=== PATIENT | female | born 1985 | race Caucasian/White ===

== ENCOUNTER 2018-04-08 18:56 | Inpatient (IN) | payer BC ==
[~2018-04-08] VITALS: Ht 162.6 cm; Wt 58.1 kg
[2018-04-08 18:56] VITALS: BP 141/79
[2018-04-08 19:29] LABS: BE -3.2 mmol/L (-2 to +3); HCO3 21.8 mmol/L (22.0-26.0); PCO2 39.2 mmHg (35.0-45.0); PO2 84.9 mmHg (75.0-100.0); pH 7.363 (7.340-7.450)
[2018-04-08 19:32] LABS: HEMOGLOBIN 13.7 gm/dL (12.0-15.0); MCH 30.4 pg (26.0-34.0); MCHC 32.7 g/dL (28.0-37.0); MCV 92.9 fL (80.0-100.0); MPV 7.6 fl. (7.2-11.1); NUCLEATED RBCS 0 /100WBC; PLATELET COUNT* 323 thou/uL (150-400); RBC 4.52 mil/uL (4.20-5.00); RDW-CV 13.2 % (10.5-14.5); WBC 18.4 thou/uL (4.0-11.0)
[2018-04-08 19:39] LABS: ANION GAP 9 mmol/L (7-16); BUN 6 mg/dL (7-18); CALCIUM 9.1 mg/dL (8.5-10.1); CHLORIDE 103 mmol/L (98-107); CO2 25 mmol/L (21-32); CREATININE 1.2 mg/dL (0.6-1.3); GLUCOSE 236 mg/dL (70-99); POTASSIUM 4.8 mmol/L (3.5-5.1); SODIUM 137 mmol/L (136-145)
[2018-04-08 19:42] LABS: PROTIME 10.6 Seconds (9.20-11.50)
[2018-04-08 19:49] LABS: ALBUMIN 4.1 g/dL (3.4-5.0); ALKALINE PHOSPHATASE 85 U/L (46-116); MAGNESIUM 1.8 mg/dL (1.8-2.4); NT-PRO BRAIN NAT PEPTIDE 108 pg/mL (<300); SGOT 15 U/L (15-37); SGPT 17 U/L (30-65); TOTAL BILIRUBIN 0.3 mg/dL (<0.1-1.0); TOTAL PROTEIN 7.8 g/dL (6.4-8.2); TROPONIN-I LEVEL <0.06 ng/mL (<0.06)
[2018-04-08 20:00] LABS: ABSOLUTE MONOCYTES 0.9 thou/uL (0.0-1.2); ABSOLUTE NEUTROPHILS 15.5 thou/uL (1.6-8.1); ATYPICAL LYMPHS 2 %; PLATELET ESTIMATE ADEQUATE
[2018-04-08 20:03] LABS: ACETAMINOPHEN < 2 ug/mL (10-30); ALCOHOL < 10 mg/dL (<10); SALICYLATE 6.9 mg/dL (2.8-20.0)
[2018-04-08 20:06] LABS: URINE BILIRUBIN NEGATIVE (Negative); URINE BLOOD 2+ (Negative); URINE CLARITY CLEAR; URINE COLOR YELLOW; URINE GLUCOSE-RANDOM 2+ (Negative); URINE KETONES NEGATIVE (Negative); URINE LEUKOCYTES-REFLEX NEGATIVE (Negative); URINE NITRITE-REFLEX NEGATIVE (Negative); URINE PROTEIN TRACE (Negative); URINE SPECIFIC GRAVITY >= 1.030 (1.005-1.030); URINE UROBILINOGEN 0.2 E.U./dl (0.2-1.0)
[2018-04-08 20:14] LABS: MUCUS 0-3 Light strn/LPF (None Seen); SQUAMOUS 4-10 Moderate /LPF (0-3)
[2018-04-08 20:15] LABS: HYALINE CASTS 0-3 Few /LPF (None Seen)
[2018-04-08 20:16] LABS: BACTERIA-REFLEX 1-9 Few /HPF (None Seen); CRYSTALS None Seen /LPF (None Seen); URINE RBC 0-2 Rare /HPF (0-2); URINE WBC-REFLEX 0-5 Rare /HPF (0-5)
[2018-04-08 20:22] LABS: AMP/METHAMP Negative (Negative); BARBITURATES Negative (Negative); BENZODIAZEPINES Negative (Negative); COCAINE Negative (Negative); METHADONE Negative (Negative); OPIATES Negative (Negative); PCP Negative (Negative); THC Negative (Negative)
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
[2018-04-08 22:20] VITALS: BP 127/82
[2018-04-08 23:00] VITALS: BP 110/80
[2018-04-09] VITALS (24 sets, daily range): BP systolic 108–133; BP diastolic 70–90
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
[2018-04-09] MEDS ORDERED: SINUS CONGESTI PO (01:41)
[2018-04-09] MEDS ORDERED: DOXYCYCLINE 10100 MG PO (01:41)
--- NOTE | 2018-04-09 08:59 | NUR ---
0708 ASSUMED CARE OFPATIENT. PLEASE SEE DOCUMENTED ASSESSMENT. PT IS HERE WITH INTENTIONAL OVERDOSE, SITTER AT BEDSIDE
--- NOTE | 2018-04-09 10:27 | EKG ---
[place] [address] ELECTROCARDIOGRAM REPORT Name: PETER CAPPS Room: [address] ADM IN .R.#: [id number] Admission: 04/08/18 Attend Phys: Lulu Encarnacion Discharge: Date of : 83 Report #: [id number] THIS REPORT FOR: //name// [facility] ED Test Date: 2018-04-08 Test Time: 19:04:20 Pat Name: PETER CAPPS Department: Room: [facility] Gender: F Global Account Manager: KIM : 1985 Requested By: Sofia Monsalve Order Number: [id number] MD: Joseph Tam Measurements Intervals [place] Rate: 134 P: 70 NC: 131 QRS: 25 QRSD: 94 T: 82 QT: 303 QTc: 453 Interpretive Statements Sinus tachycardia LAE, consider biatrial enlargement RSR' in V1 or V2, right VCD Baseline wander in lead(s) I,II,aVR,V1,V2,V3,V5 No previous ECG available for comparison Electronically Signed On 04-09-2018 10:27:29 GUIDE DOG MOBILITY INSTRUCTOR by Joseph Tam [email or web address] <ELECTRONICALLY SIGNED> By: Joseph Tam MD, [facility] 04/09/18 1027 190 03 Joseph Tam MD, [facility] /EPI
--- NOTE | 2018-04-09 10:30 | NUR ---
PT ADMITTED LAST EVENING WITH INTENTIONAL DRUG OVERDOSE. PT TOO SLEEPY AT THIS TIME TO ASSESS, WILL ASSESS WHEN MORE AWAKE AND ALERT.
[2018-04-09 10:33] LABS: ABSOLUTE BASOPHILS 0.1 thou/uL (0.0-0.2); ABSOLUTE LYMPHOCYTES 3.1 thou/uL (0.8-5.3); ABSOLUTE MONOCYTES 1.3 thou/uL (0.0-1.2); BASOPHILS 0.7 %; EOSINOPHILS 0.2 %; HEMATOCRIT 37.7 % (37.0-47.0); HEMOGLOBIN 12.5 gm/dL (12.0-15.0); MCH 30.5 pg (26.0-34.0); MCHC 33.1 g/dL (28.0-37.0); MCV 92.1 fL (80.0-100.0); MONOCYTES 7.6 %; MPV 7.8 fl. (7.2-11.1); NUCLEATED RBCS 0 /100WBC; PLATELET COUNT* 252 thou/uL (150-400); POLYS 72.5 %; RBC 4.09 mil/uL (4.20-5.00); RDW-CV 13.3 % (10.5-14.5); WBC 16.5 thou/uL (4.0-11.0)
[2018-04-09 11:15] LABS: ALBUMIN 3.5 g/dL (3.4-5.0); CALCIUM 8.4 mg/dL (8.5-10.1); CREATININE 0.9 mg/dL (0.6-1.3); MAGNESIUM 1.7 mg/dL (1.8-2.4); PHOSPHORUS* 3.9 mg/dL (2.5-4.9); POTASSIUM 4.6 mmol/L (3.5-5.1); TOTAL BILIRUBIN 0.4 mg/dL (<0.1-1.0); TOTAL PROTEIN 6.3 g/dL (6.4-8.2)
--- NOTE | 2018-04-09 15:55 | NUR ---
1400 WHILE BATHING PATIENT, NOTED THAT LEGS ARE TOO RIGID TO BEND AT KNEE
--- NOTE | 2018-04-09 18:06 | NUR ---
PATIENT MAKING SOME PROGRESS TOWARDS GOALS. SAFETY MAINTAINED WITH SITTER. HAS BEEN MORE ORIENTED BUT ALSO HAS VISUAL HALLUCINATIONS. OCCASIONAL MUSCLE TWITCHING OF LEGS NOTED WITH LESS RIGIDITY. VSS. DIET RESUMED BUT HAS NOT EATEN MUCH. MAGNESIUM REPLACED. MOTHER IN LAW VISITED. POISON CONTROL UPDATED
[2018-04-09 19:11] LABS: GLYCOHEMOGLOBIN (HGB A1C) 5.2 % (4.8-5.6)
[2018-04-10] VITALS (17 sets, daily range): BP systolic 103–135; BP diastolic 58–90
[2018-04-10 04:41] LABS: HEMATOCRIT 36.6 % (37.0-47.0); HEMOGLOBIN 11.9 gm/dL (12.0-15.0); MCH 30.2 pg (26.0-34.0); MCHC 32.6 g/dL (28.0-37.0); MCV 92.5 fL (80.0-100.0); MPV 7.9 fl. (7.2-11.1); RBC 3.95 mil/uL (4.20-5.00); RDW-CV 13.1 % (10.5-14.5)
[2018-04-10 05:26] LABS: ALBUMIN 3.3 g/dL (3.4-5.0); CALCIUM 8.5 mg/dL (8.5-10.1); CREATININE 0.8 mg/dL (0.6-1.3); MAGNESIUM 1.9 mg/dL (1.8-2.4); POTASSIUM 4.4 mmol/L (3.5-5.1); TOTAL BILIRUBIN 0.5 mg/dL (<0.1-1.0)
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
--- NOTE | 2018-04-10 17:11 | NUR ---
PATIENT CAME FROM THE ICU IN STABLE CONDITION VIA WHEELCHAIR. NO COMPLAINTS OF ANY KIND AT THIS TIME. FAMILY AND PATIENT ORIENTED TO ROOM AND POLICY WENT OVER. QUESTIONS ANSWERED FOR PATIENT AND FAMILY. EXPLAINED THAT THE PATIENT IS ABLE TO MAKE OWN DECISION AT THIS TIME. AGREE WITH THE ICU NURSES ASSESSMENT. SITTER IS AT BEDSIDE, WILL CONTINUE TO MONITOR.
--- NOTE | 2018-04-10 17:43 | NUR ---
PT ASSESSMENT CHARTED. VSS THROUGHOUT SHIFT. REPORT GIVEN TO 3W NURSE. TELEPSYCH DONE AND RECOMMENDATIONS GIVEN TO DR. HOLT AND ARE IN THE CHART. FAMILY HAS BEEN UPDATED. PT MADE CONFIDENTAL PER MOTHER IN LAW NICHOLAS. ENOCH ADDED TO AUTHORIZED CONTACT LIST. FAMILY HAS BEEN EDUCATED RELATED TO PATIENT BEING ABLE DECIDE FOR HERSELF WHO SHE WOULD LIKE TO REPRESENT HER. CASE MANAGEMENT AND MACHINE REBUILDER CONTACTED AND MACHINE REBUILDER TALKED WITH FAMILY SEVERAL TIMES. WILL CONTINUE TO MONITOR THIS AND THIS INFORMATION WAS GIVEN TO 3W NURSE. PT SENT TO ROOM 305 VIA WHEELCHAIR WITH NURSING STAFF AT 1645. ANTOINE REMOVED PRIOR TO TRANSFER.
[2018-04-11] VITALS: BP 109/61
--- NOTE | 2018-04-11 04:10 | NUR ---
ASSUMED CARE AT START OF SHIFT UP AMBULATED IN HALLWAY NO COPLAINTS OF NAUSEA, PO MEDICATION TAKEN WITHOUT DIFF. RESTED WEL THROUGHOUT HOURLY ROUND, NO CNERNS VOICED. WILL CONINTUE WITH CURRENT PLAN OF CARE.
--- NOTE | 2018-04-11 04:16 | NUR ---
RESTED WELL THROUGHOUT HOURLY ROUNDS SITTER REMANINS AT BEDSIDE , NO VOCAL THREATS OF HARMING SELF NOTED , NO CPMPLIANTS VOIDED , VSS, , NO CHANGES IN PT ASSESSSMENT.
[2018-04-11 08:30] VITALS: BP 111/69
[2018-04-11 16:00] VITALS: BP 115/66
--- NOTE | 2018-04-11 18:38 | NUR ---
PATIENT HAS BEEN ALERT AND ORIENTED TODAY. NO COMPLAINTS OF ANY KIND, FLAT AFFECT BUT WILL TALK AND IS APPROPRIATE. SITTER IS IN ROOM WITH PATIENT. VITAL SIGNS HAVE BEEN STABLE ON ROOM AIR. CALL LIGHT IS IN REACH, WILL CONTINUE TO MONITOR.
[2018-04-12] VITALS: BP 89/48
--- NOTE | 2018-04-12 05:51 | NUR ---
PATIENT SLEPT MOST OF THE NIGHT. IV REMAINS SALINE LOCKED. PATIENT HAS BEEN CALM. AFFECT REMAINS FLAT. PATIENT HAS VOICED NO SUICIDAL THOUGHTS. REMAINS ON A 1:1 SITTER. AWAITING A BED AT INPATIENT [facility]. WILL CONTINUE TO MONITOR.
[2018-04-12 08:15] VITALS: BP 103/58
--- NOTE | 2018-04-12 12:23 | NUR ---
SW met with pt to discuss inpt psychiatric recommendation and pt in agreement with plan. SW faxed referral to [facility] and SW will continue to follow to assist with finalizing safe dc plan.
[2018-04-12 14:19] VITALS: BP 103/58
[2018-04-12 14:37] VITALS: BP 99/54
--- NOTE | 2018-04-12 14:57 | NUR ---
PATIENT ASKED NURSE TO CALL AND INFORM OF BEING TRANSFERRED TO [facility]. CALL PLACED TO [place] TO INFORM. PICTURE OBTAINED OF LEFT BUTTOCK BRUISE, RIGHT BUTTOCK BRUISE HEALED, NO DISCHARGE PICTURE OBTAINED. AWAITING TRANSPORT.
--- NOTE | 2018-04-12 15:15 | NUR ---
SW received consultation/order for pt [facility] dc [facility]. SW met with pt and discussed recommendations; pt agreeable to plan. SW faxed referral information to [facility] ([facility] and discussed with intake; they were able to have a bed available at [facility] location. Accepting Dr is Dr Penny Mcclelland. ABDI provided pt nurse number to provide report to Ayde at [phone]. ABDI faxed transfer form for ambulance arranged at 3:10 pm for next available transport. SW and pt nurse completed EMTALA transfer form, reviewed and pt signed. ABDI called and spoke with pt family Lula to inform of dc plan. DC orders/info and medical records prepared to go with pt to provide to [facility] for continuation of care.
--- NOTE | 2018-04-12 15:43 | NUR ---
REPORT CALLED TO KIM AT [facility]. PATIENT DISCHARGED VIA AMBULANCE. ALL PERSONAL BELONGINGS SENT WITH EMS TRANSPORT.
== END 2018-04-12 15:45 | DRG 917 ==
LOC: M.ERS 18:56 → M.ICU 20:54 → M.TBA-ER 20:54 → M.ICU 21:48 → M.3W 04-10 17:09
PROVIDERS: Emergency Medicine; Family Medicine; ADMIT Internal Medicine
DX: T43.212A Poisoning by selective serotonin and norepinephrine reuptake inhibitors, intentional self-harm, initial encounter (principal); N17.0 Acute kidney failure with tubular necrosis; G43.909 Migraine, unspecified, not intractable, without status migrainosus; F12.90 Cannabis use, unspecified, uncomplicated; F17.210 Nicotine dependence, cigarettes, uncomplicated; E83.42 Hypomagnesemia; Z28.21 Immunization not carried out because of patient refusal; Z79.899 Other long term (current) drug therapy; Y92.89 Other specified places as the place of occurrence of the external cause

== ENCOUNTER → 2018-05-20 | Outpatient (CLI) | payer BC ==
[~2018-05-20] MED LIST: DOXYCYCLINE 10100 MG PO; SINUS CONGESTI PO
== END ==
LOC: M.RAD 11:37
DX: M54.5 Low back pain (principal); M54.9 Dorsalgia, unspecified